=== PATIENT | male | born 1955 | race Caucasian/White ===

== ENCOUNTER 2017-04-08 08:45 | Day surgery (SDC) | payer BC ==
--- NOTE | 2017-04-08 07:16 | PCM.HP ---
H&P History of Present Illness - General Date of Service: 04/08/17 Admit Problem/Dx: right inguinal hernia, possible left inguinal hernia Source of Information: Patient - History of Present Illness Initial Comments - Free Text/Narative: The patient is a 61-year-old male referred by Dr. Aguirre for right inguinal hernia The patient was last evaluated in the clinic on February 02 for right inguinal hernia, possible left inguinal hernia. Due to his cardiac history he did need cardiology clearance. This was obtained with Yelena Mary NP on 03/05. The patient denies any health changes since he was last evaluated. He did have an EKG which was otherwise normal, SB at 48 BPM. He denies changes, with the exception of noting more pain in the groin with walking, still more on the right. 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 He was sore by the end of the day. He was having some problems with dizziness with position change. He is no longer having this occur. He reports his pulse has not gone below 50. CBC drawn today was within acceptable limits. When he was last evaluated in the clinic he reported a right possible left hernia. The hernia has been present for: has noted the right hernia for two years, noted a bump and didn't think much of it. It has gotten bigger and more noticeable. On the right will have some pain with walking, can feel there is something there. NO bulge noted on left, does just feel there is something there when walking. Reports: Occasionally does heavy lifting at work. NO specific incident prior to noting hernia. The hernia has grown: Right seems more noticeable. Again on left no bulge just has pain with walking Pain ratin/10 Aggravating factors: Walking and moving does aggravate. Does not have pain all the time, just every so often. Alleviating factors: Just resting. The patient reports pain with coughing, sneezing, bending, lifting. The patient denies obstipation, firm bulge, change of skin overlying the hernia. The patient denies any constipation/ diarrhea/ hematochezia/ melena/blood on tissue paper/hemorrhoids. Has 1-2 soft, brown, formed, BMs daily. Bowel movements are described as regular and easy to pass. No unintentional weight loss. No change in stool caliber. Denies history of ulcerative colitis or Crohn' s disease. Denies any family history of inflammatory bowel disease or GI cancers. Last colonoscopy was never.. No history of reflux, heartburn,vomiting, or dysphagia. - Related Data Allergies/Adverse Reactions: Allergies Allergy/AdvReac Type Severity Reaction Status Date / Time No Known Allergies Allergy Verified 04/08/17 09:31 Home Medications: Home Meds Lisinopril 40 mg PO DAILY 08/07/15 [History] Nitroglycerin 0.4 mg SL ASDIRECTED PRN 08/07/15 [History] atorvaSTATin [Lipitor] 40 mg PO BEDTIME 08/07/15 [History] Aspirin 325 mg PO DAILY 04/09/16 [History] Metoprolol Tartrate 25 mg PO BID 05/06/16 [History] Isosorbide Mononitrate [Imdur] 15 mg PO DAILY 06/25/16 [History] Travoprost [Travatan Z] 1 drop EYEBOTH ASDIRECTED 04/07/17 [History] Past Medical History HEENT History: Reports: Impaired Vision Other HEENT History: glasses Cardiovascular History: Reports: High Cholesterol, Hypertension Other Cardiovascular History: ashd, aortic stenosis Respiratory History: Reports: SOB Gastrointestinal History: Reports: GERD Musculoskeletal History: Reports: Fracture, Other (See Below) Other Musculoskeletal History: surgery on 2nd digit finger fracture. pelvic fracture from 4 [facility]. Other Psychiatric History: history of alcohol abuse. quit drinking in 2008 Other Hematologic History: hx of leukocytosis - Past Surgical History Cardiovascular Surgical History: Reports: Coronary Artery Bypass Social & Family History - Family History Family Medical History: Noncontributory - Tobacco Use Smoking Status *Q: Former Smoker Years of Tobacco use: 20 Packs/Tins Daily: 1 Used Tobacco, but Quit: Yes Month Tobacco Last Used: 06/06/15 - Recreational Drug Use Recreational Drug Use: No - Living Situation & Occupation Living situation: Reports: Occupation: Employed H&P Review of Systems - Review of Systems: Review Of Systems: See Below Free Text/Narrative: Denies any exertional chest pain or shortness of breath. History of easy bleeding or bruising. No personal or familial history of clotting or bleeding disorders. No history of anesthetic complications. No history of familial anesthetic complications. Denies presence of chest pain. Hx of chest pain prior to seeing cardiology in August. Was started on Imdur. NO severe heart pain since. Denies further episodes of chest pain. NO: palpitations, lower extremity edema, dyspnea at rest, orthopnea, claudication, wheezing, obstructive sleep apnea, chronic cough , upper respiratory symptoms in the last two weeks. History of blood thinner use after stenting in 2014. No history of anemia. No history of seizure or stroke. Hx of shortness of breath in the cold. NO: pulmonology evaluation. No history of fever, chills, or nightsweats. Prior cardiology evaluation due to CAD, CABG and stenting. Hx of "atherosclerotic heart disease s/p CABG in March 2016 with a LUCIANO to LAD, SVG to ramus, SVG to PDA, and SVG to OM. He has had PCI to LCX in July 2015 , mid LAD and diagonal May 2015. He has hypertension, hyperlipidemia, and aortic stenosis." Per Ms. Mary's 08/2016 note. Echo completed March 2016 Conclusion: 1. Left ventricular ejection fraction is 60 to 65%. 2. Mild aortic valve stenosis. 3. Basal anteroseptal segment, mid inferoseptal segment, and mid anteroseptal segment are abnormal. 4. Normal right ventricular size, wall thickness, and systolic function. 5. Mild to moderate tricuspid regurgitation. 03/20/16: Abnormal stress test IMPRESSION: Abnormal myocardial perfusion stress test. Reversible perfusion defect noted in the mid and the basal septum and inferior wall suggestive of ischemia. Normal left ventricular (LV) function. ECG portion of the stress test with exercise is markedly abnormal for ischemia in the inferior and lateral leads. Cardiac Catheterization 03/27/2016: IMPRESSION 1. Stents in the mid left anterior descending (LAD) and left circumflex are free of disease. 2. Mid left anterior descending (LAD) has a focal 70% concentric lesion noted. 3. Distal left circumflex has a focal 70% eccentric lesion noted. 4. Mid right coronary artery (RCA) has a 90% focal lesion, and the distal RCA has an 70% focal concentric lesion. CAB04/04/16 Coronary artery bypass grafting x4 with left internal mammary artery to his left anterior descending (LAD), saphenous vein graft to his high diagonal ramus , second saphenous vein graft to posterior descending artery (PDA) and third saphenous vein graft to the obtuse marginal EKG 04/04/16: EKG Severity - ABNORMAL ECG - EKG Impression Sinus rhythm Anteroseptal infarct, age indeterminate Carotid doppler 03/28/16: No evidence of high grade stenosis General: Reports: No Symptoms. Denies: Fever, Chills HEENT: Reports: No Symptoms Pulmonary: Reports: No Symptoms. Denies: Shortness of Breath, Wheezing Cardiovascular: Reports: No Symptoms. Denies: Chest Pain, Palpitations Gastrointestinal: Reports: Other (see hpi) Genitourinary: Reports: No Symptoms Musculoskeletal: Reports: No Symptoms Skin: Reports: No Symptoms Psychiatric: Reports: No Symptoms Neurological: Reports: No Symptoms Hematologic/Lymphatic: Reports: No Symptoms Immunologic: Reports: No Symptoms Exam - Exam Exam: See Below - Vital Signs Weight: 75.296 kg - Exam General: Alert, Oriented HEENT: Conjunctiva Clear. No: Scleral Icterus Lungs: Clear to Auscultation, Normal Respiratory Effort Cardiovascular: Regular Rate, Regular Rhythm, Normal S1, Normal S2, Systolic Murmur. No: Rubs Abdomen: Soft Back Exam: Normal Inspection Extremities: Normal Inspection, Normal Pulses. No: Clubbing, Edema Skin: Warm, Dry, Intact Neuro Extensive - Mental Status: Alert, Oriented x3, Normal Mood/Affect, Normal Cognition, Memory Intact Psychiatric: Alert, Normal Affect, Normal Mood *Q Meaningful Use (ADM) - VTE *Q VTE Criteria *Q: - Stroke *Q Stroke Criteria *Q: - AMI *Q AMI Criteria *Q: - Problem List (1) Inguinal hernia SNOMED Code(s): 812317051 ICD Code: K40.90 - UNIL INGUINAL HERNIA, W/O OBST OR GANGR, NOT SPCF RECUR Status: Acute Current Visit: Yes Qualifiers: Laterality: unspecified laterality Recurrence: not specified as recurrent Problem List Initiated/Reviewed/Updated: Yes Orders Last 24hrs: Active Orders 24 hr Category Date Time Status Peripheral IV Care [RC] . DIRECTED Care 04/08/17 00:01 Active Verify Patient Consent Obtain [RC] ASDIRECTED Care 04/08/17 00:01 Active Lactated Ringers [Ringers, Lactated] 1,000 ml Med 04/08/17 00:01 Active IV ASDIRECTED Lidocaine 1%/Sod Bicarbonate [Buffered Lidocaine 1% in Med 04/08/17 00:01 Active NS 8.4%] 0.25 ml IV ONETIME PRN Sodium Chloride 0.9% [Saline Flush] Med 04/08/17 00:01 Active 10 ml FLUSH ASDIRECTED PRN Medication Administration Instruction [OM.PC] Routine Oth 04/08/17 00:01 Ordered Peripheral IV Insertion Adult [OM.PC] Routine Oth 04/08/17 00:01 Ordered Medication Orders Lactated Ringer's (Ringers, Lactated) 1,000 mls @ 125 mls/hr IV ASDIRECTED HERMILA Lidocaine/Sodium Bicarbonate (Buffered Lidocaine 1% In Ns 8.4%) 0.25 ml IV ONETIME PRN PRN Reason: Prior to IV Start Sodium Chloride (Saline Flush) 10 ml FLUSH ASDIRECTED PRN PRN Reason: Keep Vein Open Assessment/Plan Comment:: 61yr male with right inguinal hernia, possible left inguinal hernia Patient can perform 4 METS of physical activity without chest pain or shortness of breath. Hx of CAD, HTN, aortic stenosis, CABG, coronary stenting. PLAN: We discussed laparoscopic right inguinal hernia and possible left inguinal hernia repair with mesh. We reviewed risks of the procedure including pain, bleeding, need for additional procedures, damage to surrounding structures, hernia recurrence, mesh or incisional infection, damage to other intra- abdominal structures.Post-operative instructions of no lifting greater than 10 pounds for 6 weeks was reviewed. Informed consent was obtained. MRSA swab obtained and was negative. This procedure will be done at [facility] due to cardiac history. He is overdue for colonoscopy, recommended this be completed after surgery, he can have this with Dr. Aguirre or Dr. Lucio. Patient is still considering. I personally reviewed the patient's previous medical records and laboratory studies. Patient verbalized understanding and agreed with care plan. This patient was evaluated with Dr. Shraddha Lucio. Plan formulated by Dr. Naveed Galvez, KARLA-Faby scribing for Dr. Shraddha Lucio General Surgery Department [facility]
[~2017-04-08 08:45] MED LIST: Dexamethasone 4 MG/ML SDV ONE; HYDROmorphone 1 MG/ML Syringe ONE; Lactated Ringers 1,000 ML ONE; Lidocaine 1% 6 ML ONE; Lidocaine 1%/Sod Bicarbonate in NS 8.4% 1 ML Syringe IV PRN; Midazolam 1 MG/ML 2 ML SDV ONE; Ondansetron 4 MG/2 ML SDV ONE; Propofol 200 MG/20 ML SDV ONE; Rocuronium 50 MG/5 ML Vial ONE; Sodium Chloride 0.9% 10 ML Syringe FLUSH PRN; ceFAZolin 1 GM Vial ONE; fentaNYL 250 MCG/5 ML SDV ONE
[2017-04-08] MEDS: Lactated Ringers 1,000 ML IV SCH ×2 (09:15→13:58)
--- NOTE | 2017-04-08 09:20 | PCM.PREANE ---
Preanesthetic Assessment - Anesthesia/Transfusion/Family Hx Anesthesia History: Prior Anesthesia Without Reaction Family History of Anesthesia Reaction: No Transfusion History: No Prior Transfusion(s) - Review of Systems General: No Symptoms Pulmonary: No Symptoms Cardiovascular: No Symptoms Gastrointestinal: No symptoms Neurological: No Symptoms Other: Reports: Easy Bruising - Physical Assessment NPO Status Date: 04/08/17 NPO Status Time: 00:10 (sip) Pulse: 51 O2 Sat by Pulse Oximetry: 100 Respiratory Rate: 16 Blood Pressure: 139/83 Temperature: 98 F Height: 5 ft 10.08 in Weight: 75.296 kg ASA Class: 3 Mental Status: Alert & Oriented x3 Airway Class: Mallampati = 2 Dentition: Reports: Normal Dentition Thyro-Mental Finger Breadths: 3 Mouth Opening Finger Breadths: 3 ROM/Head Extension: Full Lungs: Clear to auscultation, Normal respiratory effort Cardiovascular: Regular Rate, Regular Rhythm - Allergies Allergies/Adverse Reactions: Allergies Allergy/AdvReac Type Severity Reaction Status Date / Time No Known Allergies Allergy Verified 06/09/16 08:04 - Blood Blood Available: No - Anesthesia Plan Beta Hernando: Metoprolol Med Last Dose Date: 04/08/17 Med Last Dose Time: 06:15 - Acknowledgements Anesthesia Type Planned: General Anesthesia Pt an Appropriate Candidate for the Planned Anesthesia: Yes Alternatives and Risks of Anesthesia Discussed w Pt/Guardian: Yes Pt/Guardian Understands and Agrees with Anesthesia Plan: Yes PreAnesthesia Questionnaire HEENT History: Reports: Impaired Vision Other HEENT History: glasses Cardiovascular History: Reports: Bypass, High Cholesterol, Hypertension Other Cardiovascular History: ashd, aortic stenosis Respiratory History: Reports: SOB Gastrointestinal History: Reports: GERD Musculoskeletal History: Reports: Fracture, Other (See Below) Other Musculoskeletal History: surgery on 2nd digit finger fracture. pelvic fracture from 4 [facility]. Other Psychiatric History: history of alcohol abuse. quit drinking in 2008 Other Hematologic History: hx of leukocytosis Oncologic (Cancer) History: Reports: None - Past Surgical History Cardiovascular Surgical History: Reports: Coronary Artery Bypass Musculoskeletal Surgical History: Reports: Other (See Below) (finger surgery) - SUBSTANCE USE Smoking Status *Q: Former Smoker Second Hand Smoke Exposure: No Days Per Week of Alcohol Use: 0 (quit in 2008) Recreational Drug Use History: No - HOME MEDS Home Medications: Home Meds Lisinopril 40 mg PO DAILY 08/07/15 [History] Nitroglycerin 0.4 mg SL ASDIRECTED PRN 08/07/15 [History] atorvaSTATin [Lipitor] 40 mg PO BEDTIME 08/07/15 [History] Aspirin 325 mg PO DAILY 04/09/16 [History] Metoprolol Tartrate 25 mg PO BID 05/06/16 [History] Isosorbide Mononitrate [Imdur] 15 mg PO DAILY 06/25/16 [History] Travoprost [Travatan Z] 1 drop EYEBOTH ASDIRECTED 04/07/17 [History] - CURRENT (IN HOUSE) MEDS Current Meds: Current Medications Lactated Ringer's (Ringers, Lactated) 1,000 mls @ 125 mls/hr IV ASDIRECTED HERMILA Lidocaine/Sodium Bicarbonate (Buffered Lidocaine 1% In Ns 8.4%) 0.25 ml IV ONETIME PRN PRN Reason: Prior to IV Start Sodium Chloride (Saline Flush) 10 ml FLUSH ASDIRECTED PRN PRN Reason: Keep Vein Open Discontinued Medications Cefazolin Sodium (Ancef) Confirm Administered Dose 2 gm .ROUTE .STK-MED ONE Stop: 04/08/17 06:52 Dexamethasone (Dexamethasone) Confirm Administered Dose 4 mg .ROUTE .STK-MED ONE Stop: 04/08/17 06:52 Fentanyl (Sublimaze) Confirm Administered Dose 250 mcg .ROUTE .STK-MED ONE Stop: 04/08/17 06:53 Hydromorphone HCl (Dilaudid) Confirm Administered Dose 1 mg .ROUTE .STK-MED ONE Stop: 04/08/17 06:52 Lidocaine HCl (Xylocaine-Mpf 1%) Confirm Administered Dose 6 mls @ as directed .ROUTE .STK-MED ONE Stop: 04/08/17 06:52 Lactated Ringer's (Ringers, Lactated) Confirm Administered Dose 1,000 mls @ as directed .ROUTE .STK-MED ONE Stop: 04/08/17 06:52 Midazolam HCl (Versed 1 Mg/Ml) Confirm Administered Dose 2 mg .ROUTE .STK-MED ONE Stop: 04/08/17 06:53 Ondansetron HCl (Zofran) Confirm Administered Dose 4 mg .ROUTE .STK-MED ONE Stop: 04/08/17 06:52 Propofol (Diprivan 20 Ml) Confirm Administered Dose 200 mg .ROUTE .STK-MED ONE Stop: 04/08/17 06:52 Rocuronium [place] (Zemuron) Confirm Administered Dose 50 mg .ROUTE .STK-MED ONE Stop: 04/08/17 06:52
[2017-04-08] MEDS ORDERED: Lidocaine 1% with EPINEPHrine 1:100,000 20 ML MDV ONE (10:17)
[2017-04-08] MEDS ORDERED: Bupivacaine 0.5%/EPINEPHrine 1:200,000 50 ML MDV ONE (10:17)
[2017-04-08] MEDS ORDERED: ePHEDrine/Normal Saline 25 MG/5 ML Syringe ONE (11:52)
[2017-04-08] MEDS ORDERED: Ondansetron 4 MG/2 ML SDV IVPUSH PRN (11:54)
[2017-04-08] MEDS ORDERED: diphenhydrAMINE 50 MG/ML SDV IVPUSH PRN (11:54)
[2017-04-08] MEDS ORDERED: ePHEDrine 50 MG/ML SDV IVPUSH PRN (11:54)
[2017-04-08] MEDS ORDERED: fentaNYL 250 MCG/5 ML SDV ONE (12:22)
[2017-04-08] MEDS ORDERED: Thrombin (Bovine) 5,000 Unit Kit ONE (12:57)
[2017-04-08] MEDS ORDERED: Meperidine PF 50 MG/ML Syringe IVPUSH PRN (13:00)
[2017-04-08] MEDS ORDERED: fentaNYL 100 MCG/2 ML SDV IVPUSH PRN (13:00)
[2017-04-08] MEDS ORDERED: HYDROmorphone 0.5 MG/0.5 ML Syringe IVPUSH PRN (13:00)
--- NOTE | 2017-04-08 13:46 | PCM.POSTAN ---
POST ANESTHESIA ASSESSMENT - MENTAL STATUS Mental Status: alert, oriented - VITAL SIGNS Pulse Rate: 77 SaO2: 97 Resp Rate: 18 Blood Pressure: 128/80 Temperature: 98.1 C - RESPIRATORY Respiratory Status: respiratory rate WNL, airway patent, O2 saturation stable, supplemental oxygen - CARDIOVASCULAR CV Status: pulse rate WNL, blood pressure stable - GASTROINTESTINAL GI Status: no symptoms - PAIN Pain Score: 0 - POST OP HYDRATION Hydration Status: adequate & stable
--- NOTE | 2017-04-08 14:27 | PCM48HPAN ---
Post Anesthesia Note - EVALUATION WITHIN 48HRS OF ANESTHETIC Vital Signs in Normal Range: Yes Patient Participated in Evaluation: Yes Respiratory Function Stable: Yes Airway Patent: Yes Cardiovascular Function Stable: Yes Hydration Status Stable: Yes Pain Control Satisfactory: Yes Nausea and Vomiting Control Satisfactory: Yes Mental Status Recovered: Yes
--- NOTE | 2017-04-08 14:37 | PCM.OPNOTE ---
- General Post-Op/Procedure Note Date of Surgery/Procedure: 04/08/17 Operative Procedure(s): Laparoscopic bilateral inguinal hernia repair with mesh (ELEUTERIO), laparoscopic lysis of adhesions Pre Op Diagnosis: Symptomatic right inguinal hernia, questionable left inguinal hernia Post-Op Diagnosis: Bilateral pantaloon hernia defects, right inguinal cord lipoma, small hematoma of left rectus sheath Anesthesia Technique: General ET tube, Local Primary Surgeon: Shraddha Lucio Anesthesia Provider: Rain David Clinical Trials Specialist: Gabby Galvez Fluid Replacement, Intraop: 1,900 (mL crystalloid ) Output, Urine Amount: 180 EBL in mLs: 15 Complications: None Condition: Good Free Text/Narrative:: IMPLANTED DEVICES: Bard 3DMAX size large left and right sided mesh INDICATION FOR PROCEDURE: The patient is 61-year-old man who was referred to me for evaluation of inguinal hernia by Dr. Parvez Aguirre. I discussed with the patient laparoscopic inguinal herniorrhaphy and associated risks of the procedure. The patient found these risks acceptable and agreed to proceed. DESCRIPTION OF PROCEDURE: The patient was taken to the operating room and placed in the supine position. Sequential compressive devices were placed on the bilateral lower extremities. Preoperative antibiotics were administered as per protocol. After induction of general endotracheal anesthesia a coude Blum catheter was placed with drainage of clear yellow urine. The abdomen was then prepped and draped in usual sterile fashion and an Ioban was applied. A periumbilical incision was then made using a scalpel after first injecting local anesthetic. The abdomen was entered bluntly with a hemostat. An 0 Vicryl stay suture was placed and the abdomen was insufflated to 15 mmHg. The abdomen was surveyed. Bilateral pantaloon hernias were noted. Two additional 5 mm trocars were then placed, one in the left lateral midline, one in the right lateral midline, after injecting local anesthetic. The patient was then placed in Trendelenburg. The peritoneum was then grasped near the anterior superior iliac spine on the right and was taken down with electrocautery. The hernia sac on the right was then dissected and the right direct hernia was reduced while protecting the vas defrens and spermatic cord vessels. There was a small cord lipoma on the right which was also reduced and excised using a Harmonic scalpel. Then, a Bard 3DMAX large mesh was selected. The mesh was placed into the preperitoneal space and unfurled covering all possible hernia defects bilaterally. The mesh was secured using the Ethicon secure strap tacker, 1 tack in the Damon's ligament, 1 tack medially in the rectus abdominis, and 1 tack laterally. The peritoneum was then replaced and secured using Ethicon secure strap tacks. All aspects of the mesh were then covered. The terminal ileum was adhesed to the peritoneal flap. These adhesions were carefully taken down using an endo-shear. Attention was then turned to the left side, and there were sigmoid adhesions to the patient's left-sided peritoneal flap, these were taken down with endoshears prior to releasing the peritoneum. A peritoneal flap was then created using electrocautery to the left median umbilical ligament. The preperitoneal space was developed, and an indirect hernia was noted and the sac was completely reduced. A direct inguinal hernia with significant scar tissue was noted and this was also reduced. A size large Bard 3DMAX mesh was placed in the preperitoneal space and secured in identical fashion to the left side. The peritoneal flap was replaced and secured using Ethicon secure strap tacks. There was a small amount of ooze and small hematoma which developed on the left. This was watched for 5 minutes and was not expansile and was hemostatic. An injection of 5,000 units of thrombin and 10 mL of 1% lidocaine with epinephrine was placed into the small hematoma with a 22 guage needle through the abdominal wall under direct visualization. The 5 mm trocars were removed under direct visualization, and then the abdomen was desufflated, during the desufflation of the abdomen no expansion of the small hematoma was noted. The umbilical fascial defect was closed using an 0 Vicryl suture. 4-0 Monocryl suture was then used to close the skin incisions. Dermabond was applied. The Blum catheter was removed without difficulty. The testicles were confirmed to be in their normal anatomic position in the scrotum. The patient was awakened from anesthesia, extubated, and transferred to the recovery room in stable condition having tolerated the procedure well. Sponge and instrument counts were reported as correct as the end of the case. POSTOPERATIVE PLAN: I discussed with the patient's my intraoperative findings and postop discharge instructions. The patient will be allowed to further recover and once they are awakened fully from anesthesia may be discharged home this afternoon. Prescriptions for Zofran ODT, and senna S have been provided. The patient had some pain medications at home ([place]) that he had left over from previous surgery and will use those for pain control. The patient is not to lift greater than ten pounds for the next six weeks. They are to call the office with any questions or concerns regarding their incision sites. They may shower tomorrow. They have been counseled on some anticipation of some urinary retention and perineal ecchymosis.
[2017-04-08] MEDS ORDERED: Acetaminophen/HYDROcodone 325-5 MG Tab PO ONE (15:37)
[2017-04-08 16:29] VITALS: BP 128/76
== END 2017-04-08 16:25 | disposition home or self-care (01) ==
LOC: JD.SDS 08:45
PROVIDERS: ATTEND Surgery
DX: K40.20 Bilateral inguinal hernia, without obstruction or gangrene, not specified as recurrent (principal); K21.9 Gastro-esophageal reflux disease without esophagitis; F10.10 Alcohol abuse, uncomplicated; E78.00 Pure hypercholesterolemia, unspecified; I10 Essential (primary) hypertension; I25.10 Atherosclerotic heart disease of native coronary artery without angina pectoris; Z79.899 Other long term (current) drug therapy; Z79.82 Long term (current) use of aspirin; Z87.891 Personal history of nicotine dependence; Z95.1 Presence of aortocoronary bypass graft
CPT/HCPCS: 36415; 49650; 85025; A9270; C1781; J0690; J1100; J1170; J2250; J2405; J3010; J7050; J7120; 00830; J2704